=== PATIENT | male | born 1955 | race Hispanic/Latino ===

== ENCOUNTER → 2020-05-17 | Day surgery (SDC) | payer MEDICARE, OTHER ==
[2020-05-14 10:52] LABS: BASOPHILS # (AUTO) 0.1 (0.0-0.1); BASOPHILS % 1.1 % (0.0-1.0); EOSINOPHILS % 0.1 % (0.0-6.0); HEMATOCRIT 46.6 % (38.2-49.6); HEMOGLOBIN 16.8 g/dL (14.0-18.0); LYMPHOCYTES # (AUTO) 1.2 (1.0-3.2); LYMPHOCYTES % 16.2 % (18.0-39.1); MEAN CORPUSCULAR HEMOGLOBIN 32.4 pg (28-32); MEAN CORPUSCULAR HGB CONC 36.1 g/dL (31-35); MEAN CORPUSCULAR VOLUME 89.8 fL (81-99); MONOCYTES # (AUTO) 0.7 (0.2-0.8); MONOCYTES % 9.2 % (4.4-11.3); NEUTROPHILS # (AUTO) 5.5 (2.1-6.9); NEUTROPHILS % 72.6 % (38.7-80.0); PLATELET COUNT 243 x10e3/uL (140-360); RED BLOOD COUNT 5.19 x10e6/uL (4.3-5.7); RED CELL DISTRIBUTION WIDTH 15.3 % (11.7-14.4)
[~2020-05-17] MED LIST: ATENOLOL-CHLOR1 EAC1 PO; FENTANYL CITRATE/PF 100MCG/2 ML INJ ONE; LIDOCAINE HCL 2% LOCAL INJ 5 ML SDV VIAL INJ ONE; MIDAZOLAM HCL 2 MG/2 ML VIAL ONE; PANTOPRAZOLE 40 MG 10ML VIAL ONE; PROPOFOL IV EMULSION 10 MG/ML 20 ML VIAL ONE
[2020-05-17 17:30] VITALS: BP 112/73
== END | disposition home or self-care (01) ==
LOC: OR 12:32
PROVIDERS: ATTEND Internal Medicine Gastroenterology
DX: K29.70 Gastritis, unspecified, without bleeding (principal); K20.9 Esophagitis, unspecified; R63.4 Abnormal weight loss; I10 Essential (primary) hypertension; R16.0 Hepatomegaly, not elsewhere classified; Z72.0 Tobacco use; Z01.810 Encounter for preprocedural cardiovascular examination; Z01.812 Encounter for preprocedural laboratory examination; Z11.59 Encounter for screening for other viral diseases
CPT/HCPCS: 36415; 43239; 85025; 88305; 88312; 93005; C9113; J2001; J2250; J2704; J3010; U0002

== ENCOUNTER → 2020-06-05 | Outpatient (CLI) | payer MEDICARE, OTHER ==
[~2020-06-05] MED LIST changes: +DIATRIZOATE MEGL/DIATRIZOA SOD 30 ML BTL PO ONE; -FENTANYL CITRATE/PF 100MCG/2 ML INJ ONE; +IOPAMIDOL 370 MG/ML 200 ML INFUS..BTL INJ ONE; -LIDOCAINE HCL 2% LOCAL INJ 5 ML SDV VIAL INJ ONE; -MIDAZOLAM HCL 2 MG/2 ML VIAL ONE; -PANTOPRAZOLE 40 MG 10ML VIAL ONE; -PROPOFOL IV EMULSION 10 MG/ML 20 ML VIAL ONE; +SODIUM CHLORIDE 0.9% 50ML 50 ML ONE
[2020-06-05 10:41] LABS: BLOOD UREA NITROGEN 11 mg/dL (7-26); BUN/CREATININE RATIO 13 (6-25); CREATININE, SERUM 0.83 mg/dL (0.72-1.25); EST GLOMERULAR FILTRATION RATE > 60 ML/MIN (60-)
--- NOTE | 2020-06-05 12:07 | Diagnostic Imaging Report ---
CT of the abdomen and pelvis, with contrast, 06/05/2020. History: Weight loss, decreased appetite. Comparison: None available. Technique: Multidetector CT scanning of the abdomen and pelvis was performed from the level of the lung bases to the inferior pubic rami after intravenous and oral administration of contrast. Coronal and sagittal multiplanar reformations were obtained. RADIATION DOSE: Total DLP: 477 mGy*cm Dose modulation, iterative reconstruction, and/or weight based adjustment of the mA/kV was utilized to reduce the radiation dose to as low as reasonably achievable. Discussion: LUNG BASES: No visualized abnormalities. ABDOMEN: There is diffuse low-density of the liver with focal fatty sparing adjacent to the gallbladder. A subcentimeter cortical hypodensity is seen in the anterior aspect of the left kidney which is too small to characterize. The gallbladder, biliary tree, spleen, pancreas, adrenal glands, and right kidney are normal. The hepatic vein, portal vein, and splenic vein are patent. A dilated inferior mesenteric vein is seen descending into the pelvis supplying dilated rectal varices. The abdominal aorta is calcified but within normal limits for size. The stomach, small bowel, and large bowel are unremarkable. The appendix is visualized and is normal. There is no evidence of adenopathy or free fluid. PELVIS: The bladder is normal in appearance. The prostate is calcified but not enlarged. Seminal vesicles are unremarkable. There is no evidence of free fluid or adenopathy. BONES AND SOFT TISSUES: Degenerative changes are present throughout the lumbar spine, most severe at L5-S1 with grade 1 anterolisthesis at this level but no evidence of spondylolysis. There is no evidence of lytic or sclerotic lesion. IMPRESSION: 1. Diffuse fatty infiltration of the liver. Correlate with LFTs. 2. 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 Otherwise unremarkable exam. Signed by: Graham Trevizo on 06/05/2020 12:04 PM
== END ==
LOC: CT 10:00
PROVIDERS: ATTEND Internal Medicine Gastroenterology
DX: R63.0 Anorexia (principal); R13.19 Other dysphagia; R63.4 Abnormal weight loss; Z20.828 Contact with and (suspected) exposure to other viral communicable diseases
CPT/HCPCS: 36415; 74177; 82565; 84520; Q9967; U0002

== ENCOUNTER → 2020-06-10 | Outpatient (CLI) | payer MEDICARE, OTHER ==
[~2020-06-10] MED LIST changes: -DIATRIZOATE MEGL/DIATRIZOA SOD 30 ML BTL PO ONE; -IOPAMIDOL 370 MG/ML 200 ML INFUS..BTL INJ ONE; -SODIUM CHLORIDE 0.9% 50ML 50 ML ONE
== END ==
LOC: DX 10:49
PROVIDERS: ATTEND Internal Medicine Gastroenterology
DX: R13.19 Other dysphagia (principal); R63.0 Anorexia
CPT/HCPCS: 74220

== ENCOUNTER → 2020-07-03 | Day surgery (SDC) | payer MEDICARE ==
[2020-06-28 10:56] LABS: BASOPHILS # (AUTO) 0.2 (0.0-0.1); BASOPHILS % 1.7 % (0.0-1.0); EOSINOPHILS # (AUTO) 0.2 (0.0-0.4); EOSINOPHILS % 2.4 % (0.0-6.0); HEMATOCRIT 45.3 % (38.2-49.6); HEMOGLOBIN 15.2 g/dL (14.0-18.0); LYMPHOCYTES # (AUTO) 2.8 (1.0-3.2); LYMPHOCYTES % 29.7 % (18.0-39.1); MEAN CORPUSCULAR HEMOGLOBIN 31.9 pg (28-32); MEAN CORPUSCULAR HGB CONC 33.6 g/dL (31-35); MONOCYTES # (AUTO) 0.8 (0.2-0.8); NEUTROPHILS # (AUTO) 5.3 (2.1-6.9); NEUTROPHILS % 56.8 % (38.7-80.0); PLATELET COUNT 307 x10e3/uL (140-360); RED BLOOD COUNT 4.77 x10e6/uL (4.3-5.7); RED CELL DISTRIBUTION WIDTH 15.2 % (11.7-14.4)
[~2020-07-03] MED LIST changes: +FENTANYL CITRATE/PF 100MCG/2 ML INJ ONE; +GLUCAGON FOR INJ 1 MG VIAL ONE; +HYOSCYAMINE 0.125 MG TAB ONE; +LIDOCAINE HCL 2% LOCAL INJ 5 ML SDV VIAL INJ ONE; +MIDAZOLAM HCL 2 MG/2 ML VIAL ONE; +PROPOFOL IV EMULSION 10 MG/ML 20 ML VIAL ONE
--- NOTE | 2020-07-03 07:25 | NUR ---
SPIRITUAL CARE - Pre-Surgery Assessment: Pt in bed. Pt's niece at bedside. Pt reported supportive attention from family and friends. Intervention: Production Control Technologist provided pastoral presence, hospitality, and sympathetic listening. Acquainted pt with availability of river expedition guide while hospitalized. Outcome: Pt expressed appreciation for visit. No need for follow up indicated at this time. DARNELL [facility] Spiritual Care Department O: [phone]
[2020-07-03 10:00] VITALS: BP 107/73
--- NOTE | 2020-07-03 12:11 | Operative Report ---
DATE OF PROCEDURE: 07/03/2020 SURGEON: Juan Kim MD PROCEDURE: Colonoscopy with polypectomy. INDICATIONS FOR COLONOSCOPY: Colorectal cancer screening. MEDICATIONS: The patient was done under MAC, please see anesthesiologist's note. PROCEDURE IN DETAIL: With the patient in the left lateral decubitus position, the flexible fiberoptic Olympus colonoscope was inserted into the rectum with ease and advanced all the way to the cecum. It was then withdrawn slowly. Mucosa overlying the cecum appeared to be within normal limits. One polyp was hot snared and two polyps were cold biopsied from the ascending colon. The transverse grossly appeared to be within normal limits. Two polyps were hot snared and three polyps were cold biopsied from the descending colon. The sigmoid and rectum appeared to be within normal limits. The scope was then retroflexed into the distal rectum and small internal hemorrhoids were noted, none of which was actively bleeding. The scope was then straightened out, it was subsequently withdrawn, and the patient tolerated the procedure well. Of note, prep primarily in the left colon was suboptimal, but after extensive lavage, visualization was fair. IMPRESSION: 1. Ascending colon polyps x3, one cold biopsied and two snared. 2. Descending colon polyps x5, three cold biopsied and two hot snared. 3. Internal hemorrhoids, none actively bleeding. PLAN: Follow up histology. Initiate high-fiber, low-fat diet. Initiate high-fiber supplement. The patient might benefit from a followup colonoscopy in 3 years. A total of 8 polyps were removed. Juan Kim MD [facility] [place] /[id number] cc: Vita Metzger MD
== END | disposition home or self-care (01) ==
LOC: OR 06:15
PROVIDERS: ATTEND Internal Medicine Gastroenterology
DX: Z12.11 Encounter for screening for malignant neoplasm of colon (principal); D12.2 Benign neoplasm of ascending colon; D12.4 Benign neoplasm of descending colon; K64.8 Other hemorrhoids; I10 Essential (primary) hypertension; Z01.810 Encounter for preprocedural cardiovascular examination; Z01.812 Encounter for preprocedural laboratory examination; Z20.828 Contact with and (suspected) exposure to other viral communicable diseases
CPT/HCPCS: 36415; 45380; 45385; 85025; 88305; 93005; J1610; J2001; J2250; J2704; J3010; U0002; 45378; 45384